=== PATIENT | male | born 1990 | race Two or more races ===

== ENCOUNTER 2019-01-27 11:08 | Emergency (ER) | payer OTHER ==
[~2019-01-27] VITALS: Ht 177.8 cm; Wt 68.0 kg
[2019-01-27] MEDS ORDERED: ONDANSETRON HCL 4 MG/2 ML VIAL IV ONE (13:15)
[2019-01-27] MEDS ORDERED: HYDROmorphone HCL 2 MG/ML VL IV ONE (13:15)
[2019-01-27 14:00] VITALS: BP 125/73
== END 2019-01-27 15:58 | disposition home or self-care (01) ==
LOC: EDBD 11:08 → ER 11:21
DX: S83.105A Unspecified dislocation of left knee, initial encounter (principal); X50.1XXA Overexertion from prolonged static or awkward postures, initial encounter; Y93.89 Activity, other specified; Y99.8 Other external cause status; Y92.89 Other specified places as the place of occurrence of the external cause
CPT/HCPCS: 27550; 73562; 96374; 96375; 99284; J1170; J2405